=== PATIENT | male | born 1965 | race Caucasian/White ===

== ENCOUNTER 2020-11-04 13:13 | Outpatient (REF) | payer BC, SELFPAY ==
[2020-11-04 14:36] LABS: Hematocrit 40.8 % (42-52); Hemoglobin 14.3 g/dl (14.0-18.0); Mean Corpuscular Hemoglobin 31.2 pg (27.0-33.0); Mean Corpuscular Volume 88.9 fL (80-98); Mean Platelet Volume 9.3 fL (9.4-12.4); Platelet Count 209 X10*3/uL (160-400); Red Blood Count 4.59 X10*6/uL (4.60-5.80); Red Cell Distribution Width 12.7 % (11.0-16.0); White Blood Count 4.3 X10*3/uL (4.8-10.8)
[2020-11-04 15:04] LABS: Alanine Aminotransferase 22 U/L (0-40); Albumin Level 4.3 g/dL (3.5-5.0); Alkaline Phosphatase 47 U/L (39-117); Anion Gap 11 (12-20); Aspartate Amino Transferase 22 U/L (5-37); Blood Urea Nitrogen 13 mg/dL (9-16); Calcium 9.4 mg/dL (8.4-10.2); Carbon Dioxide 26 mmol/L (22-29); Chloride 101 mmol/L (96-108); Estimated Glomerular Filt Rate > 60; Glucose Random 87 mg/dL (60-115); Potassium 4.4 mmol/L (3.3-5.1); Sodium 134 mmol/L (135-145)
== END 2020-11-04 13:14 | disposition home or self-care (01) ==
LOC: HO.LAB 13:13
PROVIDERS: PCP Internal Medicine; Referring Provider Internal Medicine; Visit Provider Nurse Practitioner Family
DX: K21.9 Gastro-esophageal reflux disease without esophagitis (principal); Z79.899 Other long term (current) drug therapy; Z86.010 Personal history of colon polyps
CPT/HCPCS: 36415; 80053; 85027

== ENCOUNTER 2020-11-05 09:04 | Outpatient (REF) | payer BC, SELFPAY | END 2020-11-05 09:05 | disposition home or self-care (01) | LOC: HO.LNP 09:04 | PROVIDERS: Visit Provider Nurse Practitioner Family | DX: K21.9 Gastro-esophageal reflux disease without esophagitis (principal) | CPT/HCPCS: 87338 ==

== ENCOUNTER → 2020-12-14 12:53 | Outpatient (BNVA) | payer BC, SELFPAY | PROVIDERS: PCP Internal Medicine; Visit Provider Nurse Practitioner Family ==

== ENCOUNTER 2021-02-10 08:02 | Day surgery (SDC) | payer BC, SELFPAY ==
--- NOTE | 2021-02-09 14:12 | HO.ANESPROP2 ---
Documented by User: Elva Cooper NP 02/09/21 14:13 HPI - Anesthesia Eval Consult details Narrative: 56yo M for Upper Endoscopy and Colonoscopy [facility] Past Medical History Medical History (Updated 02/04/21 @ 12:24 by Lacie Butler, ESSENCE) Dysphagia GERD (gastroesophageal reflux disease) Leukopenia Family History Family History (Updated 12/14/20 @ 12:58 by JADE Samson) Mother Pancreatic cancer Paternal Grandmother Breast cancer Maternal Uncle Prostate cancer Surgical History Surgical History (Updated 12/14/20 @ 12:57 by JADE Samson) H/O repair of rotator cuff History of knee surgery Social History Social History (Updated 12/14/20 @ 12:59 by JADE Samson) Alcohol intake: current Alcohol intake frequency: other Patient Tobacco Use Status: Never used Tobacco Use of substances other than those prescribed or required for medical reasons: No Are you DNR?: No Advance Directives: No Advance Directives Information Provided: Yes Meds Allergies Allergy/AdvReac Type Severity Reaction Status Date / Time IODIDE Allergy Severe KIDNEY Uncoded 02/10/21 08:14 PROBLEMS Home Medications Medication Instructions Recorded Confirmed Last Taken Type fesoterodine 8 mg tablet,extended 8 mg PO DAILY 11/04/20 02/04/21 02/10/21 06:30 History release 24 hr (C[place]ney) triamcinolone acetonide 0.1 % appl TOPICAL 11/04/20 Unknown History topical cream Exam Exam Date and Time: February 09, 2021 1412 Pertinent Lab Results Pertinent Lab Results: Laboratory Tests 11/04/20 11/04/20 14:15 14:15 WBC 4.3 L Hgb 14.3 Hct 40.8 L Plt Count 209 Sodium 134 L Potassium 4.4 Chloride 101 Carbon Dioxide 26 BUN 13 Creatinine 0.84 Assessment and Plan Assessment Anesthesia Assessment: Chart Reviewed Documented by User: Neelima Pedroza MD 02/10/21 08:58 [facility] Past Medical History Medical History (Updated 02/04/21 @ 12:24 by Lacie Butler RN) Dysphagia GERD (gastroesophageal reflux disease) Leukopenia Family History Family History (Updated 12/14/20 @ 12:58 by JADE Samson) Mother Pancreatic cancer Paternal Grandmother Breast cancer Maternal Uncle Prostate cancer Family history of problems with anesthesia: No Surgical History Surgical History (Updated 12/14/20 @ 12:57 by JADE Samson) H/O repair of rotator cuff History of knee surgery History of Problems with Anesthesia: No Social History Social History (Updated 12/14/20 @ 12:59 by JADE Samson) Alcohol intake: current Alcohol intake frequency: other Patient Tobacco Use Status: Never used Tobacco Use of substances other than those prescribed or required for medical reasons: No Are you DNR?: No Advance Directives: No Advance Directives Information Provided: Yes Meds Allergies Allergy/AdvReac Type Severity Reaction Status Date / Time IODIDE Allergy Severe KIDNEY Uncoded 02/10/21 08:14 PROBLEMS Home Medications Medication Instructions Recorded Confirmed Last Taken Type fesoterodine 8 mg tablet,extended 8 mg PO DAILY 11/04/20 02/04/21 02/10/21 06:30 History release 24 hr (Toviaz) triamcinolone acetonide 0.1 % appl TOPICAL 11/04/20 Unknown History topical cream Exam Height,Weight and Vital Signs: HR in high 40s in pre op . asymptomatic , patient has active lifestyle . Airway Mallampati Class: I (Caps laterally) TM Dist: >3cm Neck ROM: Full Heart: rrr Lungs: bl breath sounds Other: patient has caps Assessment and Plan Assessment Anesthesia Assessment: Anesthesia Plan Discussed and Chart Reviewed Final Anesthetic Review Family History of Problems with Anesthesia: No History of Problems with Anesthesia: No NPO: Yes ASA Class: II Final Preanesthetic Review: Meds/Allgs Chart Reviewed and Anes Risks/Benef Reviewed Patient Risk: Intermediate Procedure Risk: Intermediate Anesthetic Plan Anesthetic Plan: MAC: Disposition: Standard PACU
[2021-02-10 08:24] VITALS: BMI 25.7
[2021-02-10 08:25] VITALS: BP 128/69; PULSE 50; RESP 16; TEMP 36.2; O2SAT 100
--- NOTE | 2021-02-10 08:26 | MHC.SHP ---
Pre-Procedural Eval Section A Date of Service: 02/10/21 Section B Chief Complaint: screening,reflux disease Relevant Family History (Specify if Yes): No Relevant Social History: None Present Medications: see Short Stay Collaborative assessment Medical History: Significant History (Dysphagia GERD (gastroesophageal reflux disease) Leukopenia) History of Previous Operations: Relevant previous surgery/procedure and date(s) (H/O repair of rotator cuff History of knee surgery) Allergies: Allergies Allergy/AdvReac Type Severity Reaction Status Date / Time IODIDE Allergy Severe KIDNEY Uncoded 02/10/21 08:14 PROBLEMS Review of Systems Sugical H&P ROS: Negative: Constitution, Cardiovascular, Respiratory, Neurological, Psychiatric, Hem-Onc, Allergic/Immunologic, Gastrointestinal, Genitourinary, Musculoskeletal, Integumentary, Endocrine and Eyes/Ears/Nose/Throat Exam Surgical H&P Exam: Normal: HEENT, Normal: Heart, Normal: Lungs, Normal: Extremities, Normal: Abdomen, Normal: Skin and Normal: Neurological Plan Diagnosis/Plan: Unchanged I have reviewed the history and physical and performed a pertinent physical examination on my patient. No changes have occurred unless specified.
[2021-02-10] MEDS: Lactated Ringers 1,000 ML 100 ML IVCONT (08:34)
--- NOTE | 2021-02-10 08:55 | P.OP_ITS ---
Operative Note Operative Note Date of Service: 02/10/21 Narrative: Operative Information Procedure Description: EGD, Colonoscopy FLEXIBLE TRANSORAL UPPER GASTROINTESTINAL ENDOSCOPY AND COLONOSCOPY PROCEDURE NOTE UPPER ENDOSCOPY Consent: Indications for the procedure and potential complications of bleeding, perforation, reaction to medications and missed diagnosis were discussed with the patient and informed consent was obtained. Instrument: Olympus GIF H 190 J mid size upper endoscope Monitoring: Vital signs and clinical assessment, continuous EKG monitoring, Pulse oximetry, Carbon Dioxide monitoring and blood pressure monitoring were done throughout the procedure. Procedure: The patient was placed in the left lateral decubitis position and pre-procedure medications were administered and a bite block was placed. The endoscope was inserted into the mouth and advanced under direct vision to the third part of duodenum. A careful inspection was made as the upper endoscope was withdrawn including a retroflexed examination of the proximal stomach; Findings and interventions are described below. Findings: Larynx:normal Esophagus: GE junction at 46 cm, diaphragm hiatus at 46 cm, irregular z line with suspicion for short segment barretts, bx taken Stomach: Patchy erythematous mucosa. Biopsies were obtained. Grade 2 flap valve on retroflexed examination of the cardia. Duodenum: Normal bulb and descending duodenum, Intervention: Biopsies as noted above COLONOSCOPY Instrument: Olympus variable stiffness pediatric scope 190L Colonoscopy Monitoring: Vital signs and clinical assessment, continuous EKG monitoring, Pulse oximetry, Carbon Dioxide monitoring and blood pressure monitoring were done throughout the procedure. Colon withdrawal time was 19 minutes. Procedure: The patient was placed in the left lateral decubitis position and pre-procedure medications were administered. After a digital rectal examination of the ano-rectum, the video colonoscope was inserted into the rectum and advanced through the colon to the cecum/TI. The colonoscope was slowly withdrawn in a retrograde panoramic fashion and the colon mucosa was carefully examined including a retroflexed view of the rectum. Findings and interventions are described below. Procedure Difficulty:easy Findings: Terminal Ileum-normal Cecum: x 2 sessile polyps 4-6 mm removed with forceps Ascending Colon: normal Transverse Colon -normal Descending Colon:normal Sigmoid Colon: distal sigmoid with 11-13 mm semi pedunculated polyp removed with cold snare with 2 clips applied for hemostasis Rectum: Retroflexion with small internal hemorrhoids, grade I, also erythema noted in distal rectum with swelling and granularity, bx taken Anorectum - normal Colon preparation: [place] Bowel Preparation Scale Right colon; 2 Transverse colon: 3 Left colon; 3 (0 = Unprepared colon segment with mucosa not seen due to solid stool that cannot be cleared. 1 = Portion of mucosa of the colon segment seen, but other areas of the colon segment not well seen due to staining, residual stool and/or opaque liquid. 2 = Minor amount of residual staining, small fragments of stool and/or opaque liquid, but mucosa of colon segment seen well. 3 = Entire mucosa of colon segment seen well with no residual staining, small fragments of stool or opaque liquid) Impression and Post Procedure Diagnosis: Endoscopy Findings: gastritis possible short segment barretts Colonoscopy Findings: polyps internal hemorrhoids proctitis Plan: Await Pathology results Repeat Colonoscopy in 3 years or earlier if clinically indicated High fiber diet leaflet avoid straining at stool, epsom salts and sitz bath, anusol supps or cream Above findings were reviewed with the patient and relevant handouts were provided if indicated.
--- NOTE | 2021-02-10 08:55 | P.BOP_ITS ---
Brief Operative Note Date of Service: 02/10/21 Pre-op diagnosis: GERD, colon screening Post-op diagnosis: same Procedure: see op note Surgeon: Salena Guaman MD Anesthesia: MAC Was an Hostess Party Sales Representative used for this Procedure?: No Estimated blood loss (mL): 0 Condition: stable Disposition: PACU
--- NOTE | 2021-02-10 09:08 | PC.NURSE ---
Dr. Pedroza notified about patients bradycardia in the high 40's. Patient asymptomatic. No new orders, okay to proceed with procedure.
[2021-02-10 09:43] VITALS: BP 105/71; PULSE 50; RESP 16; TEMP 36.4; O2SAT 100
[2021-02-10 09:58] VITALS: BP 111/69; PULSE 52; RESP 18; TEMP 36.4; O2SAT 100
== END 2021-02-10 10:30 | disposition home or self-care (01) ==
PROVIDERS: PCP Internal Medicine; Visit Provider Internal Medicine Gastroenterology
PROC: (CPT 45385; principal; 2021-02-10 09:20)
DX: Z12.11 Encounter for screening for malignant neoplasm of colon (principal); D12.0 Benign neoplasm of cecum; D12.5 Benign neoplasm of sigmoid colon; K64.0 First degree hemorrhoids; K62.89 Other specified diseases of anus and rectum; K21.9 Gastro-esophageal reflux disease without esophagitis; K29.50 Unspecified chronic gastritis without bleeding; K22.89 Other specified disease of esophagus; K44.9 Diaphragmatic hernia without obstruction or gangrene; D72.819 Decreased white blood cell count, unspecified
CPT/HCPCS: 45385; 45380; 43239; 88305; 88342

== ENCOUNTER → 2021-02-26 10:07 | Outpatient (BNVA) | payer BC, SELFPAY | PROVIDERS: PCP Internal Medicine; Visit Provider Nurse Practitioner Family ==

== ENCOUNTER 2023-08-30 16:18 | Outpatient (AMB) | payer BC, SELFPAY ==
--- NOTE | 2023-08-30 16:20 | MHC.OFFVIS ---
Vital Signs 08/30/23 16:25 Height 5 ft 11 in Weight 197 lb 8.547 oz BMI 27.5 BP 128/80 Blood Pressure Location Rt brachial Position Sitting Pulse 48 L Pulse Source Pulse Oximeter Pulse Oximetry (%) 97 Oxygen Delivery Method Room Air Intake Visit Reasons: 3 yeras Colonoscopy/EGD screening Intake Note: Kevin presents in office today for a 3 year FUV. CC; Pt states that they are due for a egd and colo scrn. Pt reports that they have remained stable and that everything about this visit should be routine. Mold Engraver Required: No Allergies IODIDE Allergy (Severe, Uncoded 02/26/21 10:08) KIDNEY PROBLEMS HPI HPI 3 yeras Colonoscopy/EGD screening: Details: LAST VISIT: Tubular adenoma Tubular adenoma without dysplasia or carcinoma found on colonoscopy. Patient will need to have colonoscopy repeated in 3 years. Patient denies any melena, hematochezia, unintentional weight loss or ribbon like stools. Patient was instructed to speak to his blood relatives about early colorectal screening. GERD (gastroesophageal reflux disease) Upper endoscopy shows chronic inactive inflammation. Patient will continue on PPI for now. We will keep the PPI twice a day half an hour before breakfast and half an hour before dinner. He is agreeable to this. I will see him in 2 months to re-evaluate. 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 Patient was also instructed to avoid dietary triggers and late night snacking. Upright post meal for 2-3 hours, avoid laying down after meals Status post colonoscopy Patient denies any ill effects from the prep, anesthesia or procedure itself. Patient reports that he had very good experience. He is aware that he will need to have colorectal screening again in 3 years. Tubular adenoma found without dysplasia or carcinoma. Patient was also instructed to speak to his blood relatives about her lead colorectal screening. Symptoms of melena, hematochezia, unintentional weight loss or ribbon like stools discussed with him and what else to look for. Patient is agreeable to this plan and verbalizes understanding of instructions. He was given the opportunity to ask questions and all questions answered. ? Thank you for allowing me to participate in his care Plan Medications Refilled pantoprazole take half an hour before breakfast and half an hour before dinner 40 mg PO BID 60 tabs 2RF TODAY'S VISIT Patient is here today for follow-up and to discuss going for colonoscopy. Patient denies any GI concerning symptoms. Patient reports that he is no longer using pantoprazole. His symptoms have resolved. Patient reports that he changed his diet, eating healthier. Patient noticed that his symptoms of acid reflux were related to what he was eating. Patient admits that he was eating pasta with spaghetti sauce. Patient is moving his bowels without any issues. Denies melena, hematochezia, unintentional weight loss or ribbon like stools. Patient denies any dyspepsia, dysphagia or odynophagia. No issues with anesthesia in the past. No history of sleep apnea. Not on any anticoagulation medication. Patient denies any cardiac or respiratory symptoms. [facility] Medical History Tubular adenoma Dysphagia GERD (gastroesophageal reflux disease) Leukopenia Surgical History Hx of colonoscopy History of esophagogastroduodenoscopy (EGD) History of knee surgery H/O repair of rotator cuff Family History Mother Pancreatic cancer Paternal Grandmother Breast cancer Maternal Uncle Prostate cancer Social History Alcohol intake: current Alcohol intake frequency: other Patient Tobacco Use Status: Never used Tobacco Review of Systems Const Denies weight gain and Denies weight loss ENT Reports no additional complaints, Denies dysphagia and Denies odynophagia Card Reports no additional complaints Resp Reports no additional complaints GI Denies abdominal pain, Denies belching, Denies melena, Denies bloating, Denies change in bowel habits, Denies dysphagia, Denies excessive flatus, Denies dyspepsia, Denies heartburn, Denies diarrhea, Denies loose stools, Denies nausea, Denies odynophagia and Denies vomiting Reports no additional complaints Musc Reports no additional complaints Neuro Reports no additional complaints Psych Reports no additional complaints Endo Reports no additional complaints Physical Exam Vital Signs: Last Vital Signs Pulse 48 L 08/30/23 16:25 BP 128/80 08/30/23 16:25 Pulse Ox 97 08/30/23 16:25 Oxygen Delivery Method Room Air 08/30/23 16:25 BMI result Body Mass Index 27.5 Const General: healthy appearing, no acute distress and well developed Nutritional Appearance: well nourished Orientation/consciousness: patient oriented x3 Resp Auscultation: clear to auscultation bilaterally Cardio Rate: regular rate GI Inspection: Yes normal to inspection and No distended Palpation (GI): No hepatosplenomegaly present Auscultation: normal bowel sounds Skin General skin exam: elasticity normal, turgor normal and dry skin Neuro General: patient oriented x3 Assessment & Plan Assessment & Plan (1) Tubular adenoma: Code(s): D36.9 - Benign neoplasm, unspecified site Category: Medical (2) GERD (gastroesophageal reflux disease): Code(s): K21.9 - Gastro-esophageal reflux disease without esophagitis Qualifiers: Esophagitis presence: without esophagitis Qualified Code(s): K21.9 - Gastro-esophageal reflux disease without esophagitis (3) Screen for colon cancer: Code(s): Z12.11 - Encounter for screening for malignant neoplasm of colon Plan Continue avoiding dietary triggers. No need to send patient for endoscopy this time. No symptoms for over a year. Tubular adenoma without high-grade dysplasia or carcinoma found in January of 2021. Patient denies any melena, hematochezia. Denies any family history of colon cancer. Moving his bowels without any issues. No issues with anesthesia in the past. No history of sleep apnea. Not on any anticoagulation medication. Patient denies any cardiac or respiratory symptoms. What to expect before during and after procedure discussed with patient. The importance of good bowel prep day before procedure discussed with patient. He will follow-up in our office after the procedure, sooner on as needed basis. He is agreeable to this plan and verbalizes understanding of instructions. He was given the opportunity to ask questions and all questions answered. Thank you for allowing me to participate in his care Medications: New bisacodyl (Dulcolax (bisacodyl)) take 4 tabs at noon the day before your colonoscopy 20 mg (4 x 5 mg) PO ONCE 4 tabs 0RF 1 day Z12.11 - Encounter for screening for malignant neoplasm of colon polyethylene glycol 3350 (Miralax) As directed by gastroenterology department at [facility] 238 grams PO ONCE 238 grams 0RF Z12.11 - Encounter for screening for malignant neoplasm of colon Coding Level of Care Code Est Pt Level 3 (36588) Diagnoses Tubular adenoma D36.9 Gastroesophageal reflux disease without esophagitis K21.9 Esophagitis presence: without esophagitis Screen for colon cancer Z12.11 Time Spent (min) 35 Comment 25 minutes spent with patient and additional 10 minutes spent reviewing his records
[2023-08-30 16:25] VITALS: BP 128/80; PULSE 48; O2SAT 97; BMI 27.5
== END 2023-08-30 16:46 | disposition home or self-care (01) ==
PROVIDERS: PCP Internal Medicine; Visit Provider Nurse Practitioner Family
DX: D36.9 Benign neoplasm, unspecified site (principal); K21.9 Gastro-esophageal reflux disease without esophagitis; Z12.11 Encounter for screening for malignant neoplasm of colon
CPT/HCPCS: 99213

== ENCOUNTER → 2023-08-30 16:18 | Outpatient (BNVA) | payer BC, SELFPAY | PROVIDERS: PCP Internal Medicine; Visit Provider Nurse Practitioner Family ==

== ENCOUNTER 2024-01-18 07:53 | Day surgery (SDC) | payer BC, SELFPAY ==
[2024-01-16 11:51] VITALS: BMI 27.5
--- NOTE | 2024-01-17 08:36 | HO.ANESPROP2 ---
Documented by User: Elva Cooper NP 01/17/24 08:36 HPI - Anesthesia Eval Consult details Narrative: 58yo M for Colonoscopy PMFSH Active Problems Active Problems: All Active Problems Tubular adenoma (Acute) Past Medical History Medical History Tubular adenoma Dysphagia GERD (gastroesophageal reflux disease) Leukopenia Family History Family History Mother Pancreatic cancer Paternal Grandmother Breast cancer Maternal Uncle Prostate cancer Family history of problems with anesthesia: No Surgical History Surgical History Hx of colonoscopy History of esophagogastroduodenoscopy (EGD) History of knee surgery H/O repair of rotator cuff History of Problems with Anesthesia: No Social History Social History Alcohol intake: current Alcohol intake frequency: other Patient Tobacco Use Status: Never used Tobacco Use of substances other than those prescribed or required for medical reasons: Yes Substance Use Type Other:: gummies--last 1 month ago Substance Use Frequency: Occasionally Are you DNR?: No Advance Directives: No Advance Directives Information Provided: Yes Recently lost weight without trying: No Meds Allergies Allergy/AdvReac Type Severity Reaction Status Date / Time IODIDE Allergy Severe KIDNEY Uncoded 02/26/21 10:08 PROBLEMS Home Medications ?Medication ?Instructions ?Recorded ?Confirmed ?Last Taken ?Type fesoterodine 8 mg tablet,extended 8 mg PO DAILY 11/04/20 02/04/21 02/10/21 06:30 History release 24 hr (Tovijaleel) triamcinolone acetonide 0.1 % appl topical 11/04/20 Unknown History topical cream Chaga Tea 1 ea PO DAILY 08/30/23 Unknown History tadalafil 5 mg tablet 5 mg PO DIRECTED 08/30/23 Unknown History valacyclovir 1 gram tablet 4,000 mg PO ONCE 08/30/23 Unknown History turmeric PO DAILY 01/18/24 Unknown History Exam Height,Weight and Vital Signs: Height 5 ft 11 in Weight 89.358 kg Assessment and Plan Assessment Anesthesia Assessment: Chart Reviewed Final Anesthetic Review Family History of Problems with Anesthesia: No History of Problems with Anesthesia: No Documented by User: Pricilla Tracey MD 01/18/24 09:39 [facility] Past Medical History Medical History Tubular adenoma Dysphagia GERD (gastroesophageal reflux disease) Leukopenia Family History Family History Mother Pancreatic cancer Paternal Grandmother Breast cancer Maternal Uncle Prostate cancer Surgical History Surgical History Hx of colonoscopy History of esophagogastroduodenoscopy (EGD) History of knee surgery H/O repair of rotator cuff Social History Social History Alcohol intake: current Alcohol intake frequency: other Patient Tobacco Use Status: Never used Tobacco Use of substances other than those prescribed or required for medical reasons: Yes Substance Use Type Other:: gummies--last 1 month ago Substance Use Frequency: Occasionally Are you DNR?: No Advance Directives: No Advance Directives Information Provided: Yes Recently lost weight without trying: No Meds Allergies Allergy/AdvReac Type Severity Reaction Status Date / Time IODIDE Allergy Severe KIDNEY Uncoded 02/26/21 10:08 PROBLEMS INFANT Home Medications ?Medication ?Instructions ?Recorded ?Confirmed ?Last Taken ?Type fesoterodine 8 mg tablet,extended 8 mg PO DAILY 11/04/20 02/04/21 02/10/21 06:30 History release 24 hr (Toviaz) triamcinolone acetonide 0.1 % appl topical 11/04/20 Unknown History topical cream Chaga Tea 1 ea PO DAILY 08/30/23 Unknown History tadalafil 5 mg tablet 5 mg PO DIRECTED 08/30/23 Unknown History valacyclovir 1 gram tablet 4,000 mg PO ONCE 08/30/23 Unknown History turmeric PO DAILY 01/18/24 Unknown History Exam Airway Mallampati Class: II TM Dist: >3cm Neck ROM: Full Heart: rrr Lungs: cta Assessment and Plan Assessment Anesthesia Assessment: Anesthesia Plan Discussed Final Anesthetic Review NPO: Yes ASA Class: II Final Preanesthetic Review: No Changes in Pt Med Stat, Meds/Allgs Chart Reviewed, Consent Obtained/Reviewed and Anes Risks/Benef Reviewed Patient Risk: Intermediate Procedure Risk: Low Anesthetic Plan Anesthetic Plan: MAC: Disposition: Standard PACU
[2024-01-18 08:39] VITALS: BMI 26.5
[2024-01-18 08:44] VITALS: BP 117/72; PULSE 51; RESP 15; TEMP 36.4; O2SAT 99
[2024-01-18] MEDS: Lactated Ringers 1,000 ML 100 ML IVCONT (08:58)
--- NOTE | 2024-01-18 09:03 | MHC.SHP ---
Pre-Procedural Eval Section A - 24 Hr Update-Section A only Date of Service: 01/18/24 Section B - Complete if H&P > 30 days Chief Complaint: screening Relevant Family History (Specify if Yes): No Relevant Social History: None Present Medications: see Short Stay Collaborative assessment Medical History: Significant History (Tubular adenoma Dysphagia GERD (gastroesophageal reflux disease) Leukopenia) History of Previous Operations: Relevant previous surgery/procedure and date(s) (Hx of colonoscopy History of esophagogastroduodenoscopy (EGD) History of knee surgery H/O repair of rotator cuff) Allergies: Allergies Allergy/AdvReac Type Severity Reaction Status Date / Time IODIDE Allergy Severe KIDNEY Uncoded 02/26/21 10:08 PROBLEMS INFANT Review of Systems Sugical H&P ROS: Negative: Constitution, Cardiovascular, Respiratory, Neurological, Psychiatric, Hem-Onc, Allergic/Immunologic, Gastrointestinal, Genitourinary, Musculoskeletal, Integumentary, Endocrine and Eyes/Ears/Nose/Throat Exam Surgical H&P Exam: Normal: HEENT, Normal: Heart, Normal: Lungs, Normal: Extremities, Normal: Abdomen, Normal: Skin and Normal: Neurological Plan Diagnosis/Plan: Unchanged I have reviewed the history and physical and performed a pertinent physical examination on my patient. No changes have occurred unless specified. Time Spent With Patient Time: Total time managing care of this patient today ____ minutes.
--- NOTE | 2024-01-18 09:40 | HO.OPN-COLON ---
Colonoscopy Operative Note Operative Note Date of Service: 01/18/24 Narrative: Operative Information Procedure Description: Colonoscopy Indication: hx of colon polyps Anesthesia: MAC COLONOSCOPY Instrument: Olympus variable stiffness pediatric scope 190L Colonoscopy Monitoring: Vital signs and clinical assessment, continuous EKG monitoring, Pulse oximetry, Carbon Dioxide monitoring and blood pressure monitoring were done throughout the procedure. Colon withdrawal time was 10 minutes. Procedure: The patient was placed in the left lateral decubitis position and pre-procedure medications were administered. After a digital rectal examination of the ano-rectum, the video colonoscope was inserted into the rectum and advanced through the colon to the cecum/TI. The colonoscope was slowly withdrawn in a retrograde panoramic fashion and the colon mucosa was carefully examined including a retroflexed view of the rectum. Findings and interventions are described below. Procedure Difficulty: easy Findings: Terminal Ileum-normal Cecum:normal Right sided retroflexion- normal Ascending Colon: x 3 sessile polyps 4-6 mm removed with cold forceps Transverse Colon -normal Descending Colon:normal Sigmoid Colon: x2 sessile polyps 7-9 mm, one removed with cold snare and one with cold forceps Rectum: Retroflexion with small internal hemorrhoids seen, grade I Anorectum - normal Intervention: cold snare, cold forceps Colon preparation: [place] Bowel Preparation Scale Right colon; 2 Transverse colon: 2 Left colon; 2 (0 = Unprepared colon segment with mucosa not seen due to solid stool that cannot be cleared. 1 = Portion of mucosa of the colon segment seen, but other areas of the colon segment not well seen due to staining, residual stool and/or opaque liquid. 2 = Minor amount of residual staining, small fragments of stool and/or opaque liquid, but mucosa of colon segment seen well. 3 = Entire mucosa of colon segment seen well with no residual staining, small fragments of stool or opaque liquid) Impression and Post Procedure Diagnosis: colon polyps internal hemorrhoids Plan: High fiber diet leaflet Avoid straining at stool, epsom salts and sitz bath, anusol supps or cream Repeat Colonoscopy in 3 years or earlier if clinically indicated Above findings were reviewed with the patient and relevant handouts were provided if indicated.
[2024-01-18 10:16] VITALS: BP 109/63; PULSE 57; RESP 16; TEMP 36.2; O2SAT 100
[2024-01-18 10:30] VITALS: BP 116/71; PULSE 50; RESP 16; TEMP 36.3; O2SAT 98
== END 2024-01-18 10:58 | disposition home or self-care (01) ==
PROVIDERS: PCP Internal Medicine; Visit Provider Internal Medicine Gastroenterology
PROC: 0DJD8ZZ Inspection of Lower Intestinal Tract, Via Natural or Artificial Opening Endoscopic (ICD-10-PCS; CPT 45378; principal; 2024-01-18 09:50)
DX: Z12.11 Encounter for screening for malignant neoplasm of colon (principal); Z86.0101 Personal history of adenomatous and serrated colon polyps; D12.2 Benign neoplasm of ascending colon; D12.5 Benign neoplasm of sigmoid colon; K64.0 First degree hemorrhoids; K21.9 Gastro-esophageal reflux disease without esophagitis; D72.819 Decreased white blood cell count, unspecified; Z79.899 Other long term (current) drug therapy; Z91.041 Radiographic dye allergy status; Z98.890 Other specified postprocedural states
CPT/HCPCS: 45385; 45380; 88305; J2003; J2704

== ENCOUNTER → 2024-01-18 07:53 | Outpatient (BNV) | payer BC, SELFPAY | PROVIDERS: PCP Internal Medicine; Visit Provider Internal Medicine Gastroenterology | DX: Z12.11 Encounter for screening for malignant neoplasm of colon (principal); Z86.0100 Personal history of colon polyps, unspecified; D12.5 Benign neoplasm of sigmoid colon; D12.2 Benign neoplasm of ascending colon; K64.0 First degree hemorrhoids | CPT/HCPCS: 45380; 45385 ==

== ENCOUNTER 2024-02-12 16:24 | Outpatient (AMB) | payer BC, SELFPAY ==
[2024-02-12 16:25] VITALS: PULSE 56; O2SAT 98; BMI 27.3
--- NOTE | 2024-02-12 16:25 | MHC.OFFVIS ---
Vital Signs 02/12/24 16:25 Height 5 ft 11 in Weight 195 lb 12.328 oz BMI 27.3 Blood Pressure Location Rt brachial Position Sitting Pulse 56 Pulse Source Pulse Oximeter Pulse Oximetry (%) 98 Oxygen Delivery Method Room Air Intake Visit Reasons: S/P [place]; Dr. Guaman Intake Note: Relevant Flags or Indicators ? Requires Louver Mortiser Operator? Alberto Brown presents in office today for a scheduled s/p colo FUV. CC; No recent labs, diagnostics, or med orders placed. ?Pt reports having labs performed today via PCP. Low white count. Relevant GI Sx as reported per pt? Hx of any recent surgeries? [place] w/ Dr. Guaman Louver Mortiser Operator Required: No Allergies IODIDE Allergy (Severe, Uncoded 02/26/21 10:08) KIDNEY PROBLEMS INFANT HPI HPI S/P [place]; Dr. Guaman: Details: LAST VISIT: Tubular adenoma GERD (gastroesophageal reflux disease) Screen for colon cancer Plan Continue avoiding dietary triggers. No need to send patient for endoscopy this time. No symptoms for over a year. Tubular adenoma without high-grade dysplasia or carcinoma found in January of 2021. Patient denies any melena, hematochezia. Denies any family history of colon cancer. Moving his bowels without any issues. No issues with anesthesia in the past. No history of sleep apnea. Not on any anticoagulation medication. Patient denies any cardiac or respiratory symptoms. What to expect before during and after procedure discussed with patient. The importance of good bowel prep day before procedure discussed with patient. He will follow-up in our office after the procedure, sooner on as needed basis. He is agreeable to this plan and verbalizes understanding of instructions. He was given the opportunity to ask questions and all questions answered. ? Thank you for allowing me to participate in his care Medications New bisacodyl (Dulcolax (bisacodyl)) take 4 tabs at noon the day before your colonoscopy 20 mg (4 x 5 mg) PO ONCE 4 tabs 0RF 1 day Z12.11 polyethylene glycol 3350 (Miralax) As directed by gastroenterology department at [facility] 238 grams PO ONCE 238 grams 0RF Z12.11 COLONOSCOPY: Findings: Terminal Ileum-normal Cecum:normal Right sided retroflexion- normal Ascending Colon: x 3 sessile polyps 4-6 mm removed with cold forceps Transverse Colon -normal Descending Colon:normal Sigmoid Colon: x2 sessile polyps 7-9 mm, one removed with cold snare and one with cold forceps Rectum: Retroflexion with small internal hemorrhoids seen, grade I Anorectum - normal Intervention: cold snare, cold forceps Colon preparation: [place] Bowel Preparation Scale Right colon; 2 Transverse colon: 2 Left colon; 2 (0 = Unprepared colon segment with mucosa not seen due to solid stool that cannot be cleared. 1 = Portion of mucosa of the colon segment seen, but other areas of the colon segment not well seen due to staining, residual stool and/or opaque liquid. 2 = Minor amount of residual staining, small fragments of stool and/or opaque liquid, but mucosa of colon segment seen well. 3 = Entire mucosa of colon segment seen well with no residual staining, small fragments of stool or opaque liquid) Impression and Post Procedure Diagnosis: colon polyps internal hemorrhoids Plan: High fiber diet leaflet Avoid straining at stool, epsom salts and sitz bath, anusol supps or cream Repeat Colonoscopy in 3 years or earlier if clinically indicated PATHOLOGY RESULTS Diagnosis A. Colon, sigmoid, polypectomies: - Tubular adenoma; negative for high-grade dysplasia or carcinoma. - Hyperplastic mucosal polyp. B. Colon, ascending, polypectomies: Fragments of tubular adenomata; negative for high-grade dysplasia or carcinoma TODAY'S VISIT: Patient is here today for follow-up and to discuss colonoscopy results. Patient denies any ill effects from the prep, anesthesia or procedure itself. Patient reports to be feeling well overall. Moves his bowels well. Denies any melena, hematochezia. Tubular adenoma found in sigmoid and ascending colon without high-grade dysplasia or carcinoma. Recommendation was made for patient to return for colorectal screening in 3 years. Patient has significant family history of pancreatic cancer. His mom was diagnosed before age 60. Patient denies any unintentional weight loss. Patient does admit to drink alcohol occasionally. PFSH Medical History (Updated 02/12/24 @ 16:46 by Precious Chapman [facility]) Family history of pancreatic cancer Tubular adenoma Dysphagia GERD (gastroesophageal reflux disease) Leukopenia Surgical History Hx of colonoscopy History of esophagogastroduodenoscopy (EGD) History of knee surgery H/O repair of rotator cuff Family History Mother Pancreatic cancer Paternal Grandmother Breast cancer Maternal Uncle Prostate cancer Social History Alcohol intake: current Alcohol intake frequency: other Patient Tobacco Use Status: Never used Tobacco Review of Systems Const Denies weight gain and Denies weight loss ENT Reports no additional complaints, Denies dysphagia and Denies odynophagia Card Reports no additional complaints Resp Reports no additional complaints GI Denies abdominal pain, Denies belching, Denies melena, Denies bloating, Denies change in bowel habits, Denies dysphagia, Denies excessive flatus, Denies dyspepsia, Denies heartburn, Denies diarrhea, Denies loose stools, Denies nausea, Denies odynophagia and Denies vomiting Reports no additional complaints Musc Reports no additional complaints Neuro Reports no additional complaints Psych Reports no additional complaints Endo Reports no additional complaints Physical Exam Vital Signs: Last Vital Signs Pulse 56 02/12/24 16:25 Pulse Ox 98 02/12/24 16:25 Oxygen Delivery Method Room Air 02/12/24 16:25 BMI result Body Mass Index 27.3 Const General: healthy appearing, no acute distress and well developed Nutritional Appearance: well nourished Orientation/consciousness: patient oriented x3 Resp Auscultation: clear to auscultation bilaterally Cardio Rate: regular rate GI Inspection: Yes normal to inspection and No distended Palpation (GI): No hepatosplenomegaly present Auscultation: normal bowel sounds Skin General skin exam: elasticity normal, turgor normal and dry skin Neuro General: patient oriented x3 Assessment & Plan Assessment & Plan (1) Family history of pancreatic cancer: Code(s): Z80.0 - Family history of malignant neoplasm of digestive organs Category: Medical (2) Tubular adenoma: Code(s): D36.9 - Benign neoplasm, unspecified site Category: Medical (3) Status post colonoscopy: Code(s): Z98.890 - Other specified postprocedural states Plan Patient will return for colonoscopy in 3 years, sooner if clinically necessary. Will screen for pancreatic cancer. Patient will be sent for MRCP. Patient also complaints occasional abdominal bloating. Avoid dietary triggers and late night snacking. Patient will follow-up with us pending results from MRI. He will call our office if he will have any GI concerning symptoms. He is agreeable to this plan and verbalizes understanding of instructions. He was given the opportunity to ask questions and all questions answered. Thank you for allowing me to participate in his care Orders: Orders Carbohydrate Antigen 19-9 02/12/24 Z80.0 - Family history of malignant neoplasm of digestive organs MR MRCP 02/12/24 Z80.0 - Family history of malignant neoplasm of digestive organs Coding Level of Care Code Est Pt Level 3 (55059) Diagnoses Family history of pancreatic cancer Z80.0 Tubular adenoma D36.9 Status post colonoscopy Z98.890 Time Spent (min) 25 Comment 15 minutes spent with patient and additional 10 minutes spent reviewing his records
== END 2024-02-12 17:00 | disposition home or self-care (01) ==
PROVIDERS: PCP Internal Medicine; Visit Provider Nurse Practitioner Family
DX: Z80.0 Family history of malignant neoplasm of digestive organs (principal); D36.9 Benign neoplasm, unspecified site; Z98.890 Other specified postprocedural states
CPT/HCPCS: 99213

== ENCOUNTER 2024-06-06 15:41 | Outpatient (REF) | payer BC, SELFPAY ==
--- NOTE | ~2024-06-06 | MR_ITS ---
EXAMINATION: MRI Abdomen without and with contrast HISTORY: Z80.0 - Family history of malignant neoplasm of digestive organs. Evaluate for pancreas divisum. COMPARISON: None TECHNIQUE: Axial in and out of phase T1-weighted gradient echo, axial diffusion weighted, and axial and coronal HASTE T2 with fat saturation images were obtained through the abdomen. 3D MRCP Reconstructed and thin and thick slab images of the biliary tree were obtained. Subsequently, fat suppressed axial and coronal T1-weighted images were obtained after the intravenous administration of 9 mL Gadavist. FINDINGS: The pancreatic duct is normal in caliber. There is conventional pancreatic ductal anatomy without evidence of pancreas divisum. There is no pancreatic mass. There is no peripancreatic inflammatory change. There is no significant signal loss within the liver on opposed phase imaging to suggest steatosis. There is a 1.3 cm cyst in the right lobe. There is no enhancing liver mass. The hepatic and portal veins are patent. There is no intrahepatic biliary ductal dilatation. The gallbladder is unremarkable. The common bile duct is normal in caliber. No intraluminal filling defects are identified. The spleen, adrenals, and right kidney are unremarkable. There are left renal cysts measuring up to 11 mm in size. No retroperitoneal lymphadenopathy or ascites is identified in the upper abdomen. The visualized bones demonstrate normal signal intensity. MR/MR abdomen wo/w con IMPRESSION: 1. Conventional pancreatic ductal anatomy. No evidence of pancreas divisum. 2. Hepatic and left renal cysts as described. Electronically signed by: Craig Angelo MD 06/07/2024 07:17 AM EDT
[2024-06-06] MEDS: gadobutroL 10 ML VIAL IVPUSH (16:33)
== END 2024-06-06 15:42 | disposition home or self-care (01) ==
LOC: HO.MRI 15:41
PROVIDERS: Visit Provider Nurse Practitioner Family
DX: R10.9 Unspecified abdominal pain (principal); K86.1 Other chronic pancreatitis; Z87.19 Personal history of other diseases of the digestive system; Z80.0 Family history of malignant neoplasm of digestive organs
CPT/HCPCS: 74183; A9585

== ENCOUNTER → 2024-06-06 15:50 | Outpatient (BNV) | payer BC, SELFPAY | PROVIDERS: Visit Provider Radiology Diagnostic Radiology | DX: N28.1 Cyst of kidney, acquired (principal) | CPT/HCPCS: 74183 ==

== ENCOUNTER 2025-01-08 08:17 | Outpatient (REF) | payer BC, SELFPAY ==
[2025-01-08 08:35] LABS: MANUAL DIFF FLAG NO
--- OUTSIDE RECORDS SUMMARY | 2025-01-08 08:37 | XMS_ITS | Encounter Summary ---
Author Organization [facility] Address [address] [place] [address] Care Team Providers Care Electronic Design Engineer Name Role Phone Unknown, Provider Primary Care Provider Unava ilable Encounter Details Date Type Department Care Team (Late st Contact Info) Description 05/14/2020 Lab Requisition [facility] Pathology & Laboratory Medicine - [facility] [address] [place] [address] Kendra Fernandez Contact with and (suspected) exposure to covid-19 Social History Tobacco Use Types Packs/Day Years Used Date Smoking Tobacco: Never Assessed Interpersonal Safety Answer Date Record ed Physically Hurt Never 03/23/2020 Verbally Threaten Not on file 03/23/2020 Sex and Gender Information Value Date Recorded Sex Assigned at Not on file Legal Sex Male 9:22 EST Gender Identity Not on file Sexual Orientation Not on file documented as of this encounter Plan of Treatment Not on file documented as of this encounter Procedures Procedure Name Priority Date/Time Associated Diagnosis Comments ZZCOVID-19 TEST [facility] PCR Today 05/14/2020 12:30 EST Contact with and (suspected) exposure to covid-19 COVID-19 TESTING Today 05/14/2020 12:3 0 EST Contact with and (suspected) exposure to covid-19 documented in this encounter Results * COVID-19 TEST [facility] PCR (05/14/2020 12:30 EST) Swab ENTIRE NASOPHARYNX / Unknown 05/14/2020 12:30 EST 05/14/2020 20:58 EST us Kendra Fernandez MICROBIOLOGY - GENERAL ORDERABLE S Final Result Performing Organization Address City/[facility]/ZIP Co de Phone Number [facility] [address] [place] [address] * COVID-19 TESTING (05/14/2020 12:30 EST) COVID-19 rt-PCR Result Negative Negative 05/15/2020 17:41 EST [facility] Comment: This test has not been FDA cleared or approved. This test has been authorized by FDA under an EUA for use by authorized laboratories. This test has been authorized only for detection of nucleic acid from 2019-nCoV, not for any other viruses or pathogens. This test is only authorized for the duration of the declaration that circumstances exist justifying the authorization of emergency use of in vitro diagnostic tests for detection and/or diagnosis of 2019-nCoV under section 564(b)(1) of Act, 21 U.S.C 360bbb-3(b) (1), unless the authorization is terminated or revoked sooner. Negative results do not preclude 2019-nCoV infection and should not be used as the sole basis for treatment or other patient management decisions. Negative results must be combined with clinical observations, patient history, and epidemiological information. This test was developed and its performance characteristics determined by [facility]. It has not been cleared or approved by the US Food and Drug Administration. FDA does not require this test to go through premarket FDA review. This test is used for clinical purposes. It should not be regarded as investigational or for research. This laboratory is certified under the Clinical Laboratory Improvement Amendments (CLIA) as qualified to perform high complexity clinical laboratory testing. This test is based on the [facility] COVID-19 Emergency Use Authorization (EUA) assay, with minor modification as defined by the FDA Performed on the zoiduo 7 Flex RT-PCR System. Performing Lab [facility] 05/15/2020 17:41 EST [facility] Swab 05/14/2020 12:3 0 EST 05/14/2020 20:58 EST Kendra Fernandez MICROBIOLOGY GENERAL ORDERABLE S Final Result [facility] [address] [place] [address] documented in this encounter Visit Diagnoses Diagnosis Contact with and (suspected) exposure to covid-19 documented in this encounter Care Teams Electronic Design Engineer Relationship Specialty Start Date End Date Unknown, Provider, PCP - General 03/27/19 documented as of this encounter
--- OUTSIDE RECORDS SUMMARY | 2025-01-08 08:37 | XMS_ITS | Clinical Summary ---
Author Organization [facility] Address [address] [place] [address] Care Team Providers Care Instructor Nurse Name Role Phone Unknown, Provider MD Primary Care Provider Unava ilable Social History Tobacco Use Types Packs/Day Years Used Date Smoking Tobacco: Never Assessed Interpersonal Safety Answer Date Record ed Physically Hurt Never 03/23/2020 Verbally Threaten Not on file 03/23/2020 Sex and Gender Information Value Date Recorded Sex Assigned at Not on file Legal Sex Male 9:22 EST Gender Identity Not on file Sexual Orientation Not on file Plan of Treatment Health Maintenance Due Date Last Done Comments Hepatitis C Screen 1965 Hepatitis B Vaccine (1 of 3 - 19+ 3-dose series) 02/06 COVID-19 Vaccine (2023- season) 20[address] [place] [id number] BS OOS Care Teams Instructor Nurse Relationship Specialty Start Date End Date Unknown, Provider, PCP - General 03/27/19
--- OUTSIDE RECORDS SUMMARY | 2025-01-08 08:38 | XMS_ITS | Clinical Summary ---
Author Organization [facility] Address [facility] [employer] [address] [address] Phone Care Team Providers Care Cooperage Shop Supervisor Name Role Phone Armani Posada MD Primary Care Provider [phone] Arnold Davidson MD Unavailable [phone] Lovely Mera MD Unavailable [phone] Irvin Bates MD Unavailable Unavailable Varghese Zhang MD Unavailable Raymond Meier MD Unavailable [phone] Armani Posada MD Unavailable [phone] Allergies No known active allergies Medications fesoterodine (TOVIAZ) 8 mg Tb24 Take 8 mg by mouth daily. Active tadalafiL (CIALIS) 5 MG tablet Take 5 mg by mouth daily as needed for erectile dysfunction. Active triamcinolone acetonide (KENALOG) 0.025 % lotion Apply 1 Application topically as needed. 11/05/19 21 Active valACYclovir (VALTREX) 1000 MG tablet As needed cold sores 10/27/19 22 Active loratadine (CLARITIN) 10 mg tablet Take 10 mg by mouth daily. Active Medication-Free Text Take 6-8 oz by mouth every morning. Active TURMERIC ORAL Take 1,100 mg by mouth daily. 01/18/20 24 Active cholecalciferol , vitamin D3, (VITAMIN D3 ORAL) Take 500 Units by mouth every morning. Active ketoconazole 2 % creamIndication s:Rash and other nonspecific skin eruption Apply topically daily. 60 g 1 12/26/19 25 Active loratadine (CLARITIN REDITABS) 10 mg dissolvable tablet Take 10 mg by mouth daily. 025 Discontinued enoxaparin (LOVENOX) 30 mg/0.3 mL Syrg subcutaneous syringe Inject 30 mg under the skin every 12 (twelve) hours. 025 Discontinued propylene glycol/peg 400/PF (SYSTANE, PF, OPHT) Apply 1 drop to eye as needed. 025 Discontinued Encounters Date Type Department Care Team Description 12/25/2024 4:00 PM EDT Office Visit [facility] Internal Medicine [address] [place] [address] Armani Posada MD Need for prophylactic vaccination and inoculation against influenza (Primary Dx); Lipid screening; Leukopenia, unspecified type; Screening for diabetes mellitus (DM); Rash and other nonspecific skin eruption 12/25/2024 Telephone [facility] Internal Medicine [address] [place] [address] Armani Posada MD dermatology referral 10/22/2024 Telephone [facility] Internal Medicine [address] [place] [address] Armani Posada MD Referral ([facility] Derm + updated insurance referral); Referral ([facility] Urology + updated insurance referral) from Last 3 Months Immunizations Immunization Administration Dates Next Due COVID-19 (Pre-01/16) Moderna Vaccine, mRNA, PF 0 07/18/2020,06/20/2020 INFLUENZA, SPLIT VIRUS, TRIVALENT PF 12/25/2024, 01/10/2024 Influenza Quadrivalent MDCK Preservative Free IM 12/09/2022,12/29/2020 Influenza Quadrivalent Preservative Free IM 06/2021,01/01/2020 Tdap 10/06/2020 Zoster recombinant 03/15/2021,11/10/2020 Family History Medical History Relation Comments Hypertension Brother Diabetes Father Hypertension Father Prostate cancer Maternal Uncle Pancreatic cancer Mother Breast cancer Paternal Grandmother Relation Status Comments Brother Alive Daughter Alive Father Alive Maternal Uncle Mother (Age 59) Paternal Grandmother Sister Alive congenital hear problem Son Alive Social History Tobacco Use Types Packs/Day Years Used Date Smoking Tobacco: Never Smokeless Tobacco: Never Tobacco Cessation:Counseling Given: Not Answered Alcohol Use Standard Drinks/Week Comments Yes 6 (1 standard drink = 0.6 oz pur e alcohol) beer or liqour Child or Family Care Answer Date Record ed Do you have problems with on e of the following making it difficult for you to work, study, or receive health care? I choose not to answer 12/23/2024 Education Answer Date Recorded Are you interested in help w ith more adult education (for example, completing high school, GED, job training, learning the [place] language, technical skills, or developing parenting skills)? I choose not to answer 12/23/2024 Are you concerned about learning? Not on file 12/23/2024 No 12/23/2024 Yes 12/23/2024 Food Answer Date Recorded Within the past 6 months we worried whether our food would run out before we got money to buy more. I choose not to answer 12/23/2024 Within the past 6 months the food we bought just didn't last and we didn't have enough money to get more. I choose not to answer 12/23/2024 Residential Stability Answer Date Recor ded What is your housing situation today? I choose n ot to answer 12/23/2024 How many times have you move d in the past 12 months? I choose not to answer 12/23/2024 Paying for Meds Answer Date Recorded Do you have trouble paying for medicines? I elvin se not to answer 12/23/2024 Paying Utility Bills Answer Date Record ed Do you have trouble paying y our heating or electricity bill? I choose not to answer 12/23/2024 Transportation Answer Date Recorded Has the lack of transportati on kept you from medical appointments or from getting medications? I choose not to answer 12/23/2024 Unemployment Answer Date Recorded Are you currently unemployed or working on a part-time or temporary basis, and looking for work? No 01/28/2022 Digital Access Answer Date Recorded No 12/23/2024 Yes 12/23/2024 Do you have reliable internet access at home? I choose not to answer 12/23/2024 Do you have a device (e.g., phone, tablet, computer) with a working camera? Yes 12/23/2024 Intimate Partner Violence Answer Date R ecorded Denied Basic Needs Not on file 12/23/2024 In the past 12 months have y ou been in a relationship with a person who hurts, threatens, or tries to control you? No 12/23/2024 Worried food would run out Not on file 12/23 In the past 12 months have y ou been in a relationship with a person who hurts, threatens, or tries to control you? No 12/23/2024 Sex and Gender Information Value Date Recorded Sex Assigned at Male 01/31/2022 3:31 PM EST Legal Sex Male 2:41 PM EDT Gender Identity Male 01/31/2022 3:31 PM EST Sexual Orientation Straight 01/31/2022 3: 31 PM EST Last Filed Vital Signs Vital Sign Reading Time Taken Comments Blood Pressure 120/84 12/25/2024 3:58 PM EDT Pulse 62 12/25/2024 3:58 PM EDT Temperature 36.7 C (98 F) 12/25/2024 3:58 PM EDT Respiratory Rate 16 09/20/2024 3:16 PM EDT Oxygen Saturation 99% 12/25/2024 3:58 PM EDT Inhaled Oxygen Concentration - - Weight 88.2 kg (194 lb 6.4 oz) 12/25/2024 3:58 P M EDT Height 179.2 cm (5' 10.55 ) 12/25/2024 3:58 PM E DT Body Mass Index 27.46 12/25/2024 3:58 PM EDT Plan of Treatment Upcoming Encounters Date Type Department Care Team (Late st Contact Info) Description 12/30/2025 8:00 AM EDT Office Visit [facility] Internal Medicine [address] [place] [address] Manuel Casarez PA-C [address] [place] [address] Health Maintenance Due Date Last Done Comments COLOGUARD 2010 FIT TEST 2010 FOBT 2010 SIGMOIDOSCOPY 2010 VIRTUAL COLONOSCOPY 2010 PNEUMOCOCCAL VACCINES (50+ years) (1 of 1 - PCV) 2015 COVID-19 VACCINE (4 - 2024- season) 2024 02/15/2021, 07/18/2020, 06/20/2020 DEPRESSION SCREENING 12/23/2025 12/23/2024 SCREENING FOR DIABETES 08/17/2026 , 08/18/2023, 06/13/2018 LIPID PANEL 08/17/2028 08/18/2023, 06/26, 07/17/2020, Additional history exists COLONOSCOPY 04/30/2029 04/30/2024, 01/25, 02/10/2021, Additional history exists COLORECTAL CANCER SCREENING 04/30/2029 Adult Td,Tdap Booster 10/06/2030 10/06/2020 RSV VACCINE (1 - 1-dose 75+ series) 02/07/2040 HEPATITIS C SCREENING Completed 07/17/2020, 021 HIV ONE-TIME SCREENING (18-65 YEARS) Completed 07/17/2020 ZOSTER VACCINES Completed 03/15/2021, 11/10/2020 INFLUENZA VACCINE Completed 12/25/2024, , 12/09/2022, Additional history exists SMOKING STATUS SCREENING (Once After 26 Yrs) Completed 12/25/2024 HEPATITIS A VACCINES Aged Out No long er eligible based on patient's age to complete this topic HIB VACCINES Aged Out No longer eligi ble based on patient's age to complete this topic MENINGOCOCCAL VACCINES (ACWY) Aged Out No longer eligible based on patient's age to complete this topic MENINGOCOCCAL VACCINES (B) Aged Out N o longer eligible based on patient's age to complete this topic Medical Devices Not on file Procedures Procedure Name Priority Date/Time Associated Diagnosis Comments HM COLONOSCOPY FOR RESULT ENTRY ONLY Routine 04/30/2024 5:36 PM EST LIPID PANEL Routine 08/18/2023 8:34 AM EDT Lipid screening HEPATITIS C ANTIBODY, QUALITATIVE Routine 07/17/2020 8:10 AM EDT Need for hepatitis C screening test OUTSIDE GLUCOSE FASTING Routine 06/13/2018 from Last 3 Months or Most Recently Relevant to Health Maintenance Results * HM COLONOSCOPY FOR RESULT ENTRY ONLY (04/30/2024 5:36 PM EST) us Historical Provider HEALTH MAINTENANCE Final Result * (ABNORMAL) Lipid panel (08/18/2023 8:34 AM EDT) HDL 74 mg/dL [facility] Comment: Interpretation <40 mg/dL: Low HDL cholesterol (major risk factor for CHD) Greater than or equal to 60 mg/dL: High HDL cholesterol ( negative risk factor for CHD) HDL - cholesterol is affected by a number of factors, e.g. smoking, excerise, hormones, sex and age. CHOLESTEROL 173 0 - 240 mg/dL [facility] TRIGLYCERIDES 29(L) 30 - 160 mg/dL [facility] LDL 93 50 - 129 mg/dL [facility] Comment: LDL levels in terms of risk for coronary heart disease: <100 mg/dL: Optimal 100-129 mg/dL: Near or above optimal 130-159 mg/dL: Borderline high 160-189 mg/dL: High >190 mg/dL: Very High CARDIAC RISK RATIO 2.3(L) 3.4 - 5.0 [facility] Blood 08/18/2023 8:34 AM EDT 08/18/2023 8:37 AM EDT Armani Posada MD LAB BLOOD ORDERABLES Final Re sult [address] [address] * Hepatitis C antibody, qualitative (07/17/2020 8:10 AM EDT) HCV NON-REACTIV E NON-REACTI VE [facility] Blood 07/17/2020 8:10 AM EDT 07/17/2020 8:17 AM EDT Armani Posada MD LAB BLOOD ORDERABLES Final Re sult [facility] [address] [place] [address] * Outside Glucose,Fasting (06/13/2018) Glucose, fasting - External 90 65 - 99 mg/dL Historical Provider LAB BLOOD ORDERABLES Yeimy l Result from Last 3 Months or Most Recently Relevant to Health Maintenance Insurance [facility] Care Teams Cooperage Shop Supervisor Relationship Specialty Start Date End Date Armani Posada MD [address] [place] [phone] [email or web address] PCP - General Internal Medicine 12/12/19 Arnold Davidson MD [address] [place] [id number] [email or web address] 02/18/20 Lovely Mera MD [address] [place] [address] [address] [place] [address] Gastroenterology 02/18/20 Irvin Bates MD [address] [facility] [address] [place] [address] Dermatology 02/18/20 Varghese Zhang MD [address] [facility] [address] [place] [address] Orthopedic Surgery 02/18/20 Raymond Meier MD [address] [place] [address] Drive [address] [place] [address] Pulmonary Disease 02/24/20 Armani Posada MD [address] [place] [address] [email or web address] Insurance Assigned Provider 07/01/23 Additional Source Comments The information contained in this document represents components of the legal health record. It is not the complete legal health record.[facility]
--- OUTSIDE RECORDS SUMMARY | 2025-01-08 08:38 | XMS_ITS | Encounter Summary ---
Author Organization [facility] Address [address] [place] [address] Care Team Providers Care Accounting Reconciliation Clerk Name Role Phone Unknown, Provider Primary Care Provider Unava ilable Encounter Details Date Type Department Care Team (Late st Contact Info) Description 03/25/2020 Lab Requisition [facility] Pathology & Laboratory Medicine - [facility] [address] [place] [address] Jonas Romero, PharmD [address] [place] [address] Contact with and (suspected) exposure to other viral communicable diseases Social History Tobacco Use Types Packs/Day Years [...] Procedure Name Priority Date/Time Associated Diagnosis Comments COVID-19 RUBI TEST Today 03/25/2020 11 :00 EST documented in this encounter Results * COVID-19 RUBI TEST (03/25/2020 11:00 EST) SARS CoV-2 Specimen Source Nasal 03/27/2020 6:43 EST [facility] Patient Race Unknown 03/27/2020 6:43 EST [facility] Patient Ethnicity Unknown 03/27/2020 6:43 EST [facility] SARS-CoV-2 RNA Result Undetected Undetected 03/27/2020 6:43 EST [facility] Comment: SARS-CoV-2 RNA absent. This result does not rule out COVID-19 in the patient, as the sensitivity of the test depends on the timing of the specimen collection and the quality of the specimen. Result should be correlated with patient's history and clinical presentation. Method Summary SEE NOTE 03/27/2020 6:43 EST [facility] [employer] Comment: RODERICK- This PCR test uses the roderick SARS-CoV-2 assay ([employer] and is performed on the roderick StyleCaster0 System. It has received Emergency Use Authorization (EUA) by the U.S. Food and Drug Administration. Performance characteristics were verified by [facility] in a manner consistent with CLIA requirements. Fact sheets for this Emergency Use Authorization (EUA) can be found at the following links: https://www.fda.gov/media/797257/download for Healthcare Providers https://www.fda.gov/media/655690/download for Patients Test Performed by: [place] [address] Commercial Sales Director: Alirio Reyes M.D. Ph.D.; CLIA# [id number] Swab ENTIRE NASOPHARYNX / Unknown Not Given / Unknown 03/25/2020 11:00 EST 03/25/2020 20:52 EST us Jonas Romero PharmD MICROBIOLOGY - GENERAL O RDERABLES Final Result Performing Organization Address City/State/[facility] Co de Phone Number [facility] [address] [place] [address] documented in this encounter Visit Diagnoses Diagnosis Contact with and (suspected) exposure to other viral communicable diseases documented in this encounter Care Teams Accounting Reconciliation Clerk Relationship Specialty Start Date End Date Unknown, Provider, PCP - General 03/27/19 documented as of this encounter
--- OUTSIDE RECORDS SUMMARY | 2025-01-08 08:38 | XMS_ITS | Encounter Summary ---
Author Organization [facility] Address [address] [place] [address] Phone Care Team Providers Care Resist Coater Developer Name Role Phone Armani Posada MD Primary Care Provider Arnold Davidson MD Unavailable [phone] Lovely Mera MD Unavailable [phone] Irvin Bates MD Unavailable Unavailable Varghese Zhang MD Unavailable [phone] Raymond Meier MD Unavailable [phone] Armani Posada MD Unavailable [phone] Reason for Visit * Reason Onset Date Comments Referral 10/04/2024 PT and Orthopedi cs Encounter Details Date Type Department Care Team (Late st Contact Info) Description 10/04/2024 Telephone [facility] Internal Medicine [address] [place], [place] [phone] Armani Posada MD [address] [place] [address] [email or web address] Referral (PT and Orthopedics) Social History Tobacco Use Types Packs/Day Years Used Date Smoking Tobacco: Never Smokeless Tobacco: Never Alcohol Use Standard Drinks/Week Comments Yes 6 [...] high school, GED, job training, learning the [place] language, technical skills, or developing parenting skills)? [...] 3:31 PM EST Sexual Orientation Straight 01/31/2022 3 :31 PM EST documented as of this encounter Progress Notes * Sera Carson - 10/04/2024 9:38 AM EDT Pt called and is still waiting on authorization for PT referral and Orthopedics referral, please fax pt has ortho 10/09/24 and he started PT 2 days ago. PT orthopedic is Dr. Watts documented in this encounter Plan of Treatment Upcoming Encounters Date Type Department Care Team (Late st Contact Info) Description 12/30/2025 8:00 AM EDT Office Visit [facility] Internal Medicine [address] [place] [address] Manuel Casarez PA-C [address] [place] [address] [email or web address] documented as of this encounter Visit Diagnoses Not on filedocumented in this encounter Additional Health Concerns Assessment Noted Time PHQ-2 Depression Total Score: 0 09/20/19 25 4:46 PM EDT documented as of this encounter Care Teams Resist Coater Developer Relationship Specialty Start Date End Date Armani Posada MD [address] [place] [address] [email or web address] PCP - General Internal Medicine 12/12/19 Arnold Davidson MD [address] [facility] [address] [place] [address] [email or web address] Urology 02/18/20 Lovely Mera MD [address] [place] [address] [address] [place] [address] Gastroenterology 02/18/20 Irvin Bates MD [address] [facility] [address] [place] [address] Dermatology 02/18/20 Varghese Zhang MD 300 [facility] [address] [place] [address] Orthopedic Surgery 02/18/20 Raymond Meier MD [address] [place] [address] Drive [address] [place] [address] Pulmonary Disease 02/24/20 Armani Posada MD [address] [place] [address] [email or web address] Insurance Assigned Provider 07/01/23 documented as of this encounter Additional Source Comments The information contained in this document represents components of the legal health record. It is not the complete legal health record.[facility]
--- OUTSIDE RECORDS SUMMARY | 2025-01-08 08:38 | XMS_ITS | Encounter Summary ---
Author Organization [facility] Address [address] [place] [address] Care Team Providers Care Editor Dictionary Name Role Phone Unknown, Provider Primary Care Provider Unava ilable Encounter Details Date Type Department Care Team (Late st Contact Info) Description 03/23/2020 Lab Requisition [facility] Pathology & Laboratory Medicine - [facility] [address] [place] [address] Jones Russell, [address] [phone] Contact with and (suspected) exposure to other [...] Procedure Name Priority Date/Time Associated Diagnosis Comments DO NOT ORDER STANDALONE - BROAD COVID TEST Today 03/23/2020 11:15 EST Contact with and (suspected) exposure to other viral communicable diseases COVID-19 TESTING Today 03/23/2020 11:1 5 EST Contact with and (suspected) exposure to other viral communicable diseases documented in this encounter Results * DO NOT ORDER STANDALONE - BROAD COVID TEST (03/23/2020 11:15 EST) COVID-19 rt-PCR Result NEGATIVE Negative 03/25/2020 8:36 [facility] Comment: 2019-novel Coronavirus (2019-nCoV) not detected by the qRT-PCR assay. Consider testing for other respiratory viruses or re-collecting for 2019-nCoV testing. Note: Optimum timing for peak viral levels during infections caused by 2019-nCoV have not been determined. Collection of multiple specimens from the same patient may be necessary to detect the virus. Limitations Positive results are indicative of active infection with SARS-CoV-2 but do not rule out bacterial infection or co-infection with other viruses. The agent detected may not be the definite cause of disease. In addition, detection of viral RNA may not indicate the presence of infectious virus or that SARS-CoV-2 is the causative agent for clinical symptoms. Negative results do not preclude SARS-CoV-2 infection and should not be used as the sole basis for patient management decisions. Negative results must be combined with clinical observations, patient history, and epidemiological information. False negative results may also occur if amplification inhibitors are present in the specimen or if inadequate numbers of organisms are present in the specimen. Optimum specimen types and timing for peak viral levels during infections caused by SARS-CoV-2 have not been fully determined. Collection of multiple specimens (types and time points) from the same patient may be necessary to detect the virus. The test was validated for use with upper respiratory specimens obtained via nasopharyngeal or oropharyngeal swabs in VTM, UTM, M4, M5, M6, saline, and MTM media. The performance of this test has not been established for other specimens. Specimens collected using other FDA recommended Specimen Collection Materials listed in the FDA COVID-[employer] communication (June 20, 2019) are processed with the caveat that they were not all validated for use with this test and the result must be interpreted in this context. Furthermore, a false negative results may occur if a specimen is improperly collected, transported or handled. If the virus mutates in the RT-PCR target region, SARS-CoV-2 may not be detected or may be detected less predictably. Inhibitors or other types of interference may produce a false negative result. An interference study evaluating the effect of common cold medications was not performed. This test is not FDA-cleared but its performance characteristics were established by our CLIA-certified, CAP-accredited, high complexity laboratory in accordance with CLIA regulations, [employer] ([employer]) guidelines (Jun 13, 2019), and FDA guidance (May 25, 2019). This test is only for use under the Food and Drug Administration's Emergency Use Authorization. Swab NASAL / Unknown Swab / Unknown 03/23/2020 11:15 EST 03/23/2020 20:26 EST Analesa Lovely Russell [facility] - NERAL ORDERABLES Final Result [facility] [place], [place] * COVID-19 TESTING (03/23/2020 11:15 EST) COVID-19 rt-PCR Result NEGATIVE Negative 03/25/2020 10:04 EST [facility] Comment: 2019-novel Coronavirus (2019-nCoV) not detected by the qRT-PCR assay. Consider testing for other respiratory viruses or re-collecting for 2019-nCoV testing. Note: Optimum timing for peak viral levels during infections caused by 2019-nCoV have not been determined. Collection of multiple specimens from the same patient may be necessary to detect the virus. Limitations Positive results are indicative of active infection with SARS-CoV-2 but do not rule out bacterial infection or co-infection with other viruses. The agent detected may not be the definite cause of disease. In addition, detection of viral RNA may not indicate the presence of infectious virus or that SARS-CoV-2 is the causative agent for clinical symptoms. Negative results do not preclude SARS-CoV-2 infection and should not be used as the sole basis for patient management decisions. Negative results must be combined with clinical observations, patient history, and epidemiological information. False negative results may also occur if amplification inhibitors are present in the specimen or if inadequate numbers of organisms are present in the specimen. Optimum specimen types and timing for peak viral levels during infections caused by SARS-CoV-2 have not been fully determined. Collection of multiple specimens (types and time points) from the same patient may be necessary to detect the virus. The test was validated for use with upper respiratory specimens obtained via nasopharyngeal or oropharyngeal swabs in VTM, UTM, M4, M5, M6, saline, and MTM media. The performance of this test has not been established for other specimens. Specimens collected using other FDA recommended Specimen Collection Materials listed in the FDA COVID-19 [employer] communication (June 20, 2019) are processed with the caveat that they were not all validated for use with this test and the result must be interpreted in this context. Furthermore, a false negative results may occur if a specimen is improperly collected, transported or handled. If the virus mutates in the RT-PCR target region, SARS-CoV-2 may not be detected or may be detected less predictably. Inhibitors or other types of interference may produce a false negative result. An interference study evaluating the effect of common cold medications was not performed. This test is not FDA-cleared but its performance characteristics were established by our CLIA-certified, CAP-accredited, high complexity laboratory in accordance with CLIA regulations, [employer] ([employer]) guidelines (Jun 13, 2019), and FDA guidance (May 25, 2019). This test is only for use under the Food and Drug Administration's Emergency Use Authorization. Performing Lab [facility] 03/25/2020 10:04 EST [facility] Swab NASAL / Unknown Swab / Unknown 03/23/2020 11:15 EST 03/23/2020 20:26 EST us Analesa Lovely Russell [facility] MICROBI[facility] - NERAL ORDERABLES Final Result [facility] [address] [place] [address] [facility] [place], ID documented in this encounter Visit Diagnoses Diagnosis Contact with and (suspected) exposure to other viral communicable diseases documented in this encounter Care Teams Editor Dictionary Relationship Specialty Start Date End Date Unknown, Provider, PCP - General 03/27/19 documented as of this encounter
[2025-01-08 09:23] LABS: Hematocrit 42.2 % (42.0-52.0); Hemoglobin 14.5 g/dl (14.0-18.0); Imm Gran Abs Auto 0.00 X10*3/uL (0.00-0.03); Imm Gran Pct Auto 0.0 % (0.0-0.4); Lymphocytes Absolute Auto 1.2 X10*3/uL (1.2-4.9); Mean Corpuscular HGB Conc 34.4 g/dl (31.0-36.0); Mean Corpuscular Hemoglobin 30.7 pg (27.0-33.0); Mean Corpuscular Volume 89.4 fL (80.0-98.0); NRBC Abs Auto 0.000 X10*3/uL (0.0-0.012); NRBC Pct Auto 0.0 /100WBC (0.0-0.2); Platelet Count 184 X10*3/uL (160-400); Red Blood Count 4.72 X10*6/uL (4.60-5.80); White Blood Count 2.9 X10*3/uL (4.8-10.8)
[2025-01-08 10:25] LABS: Alanine Aminotransferase 27 U/L (0-40); Albumin Level 4.2 g/dL (3.5-5.0); Alkaline Phosphatase 61 U/L (39-117); Anion Gap 8 (12-20); Aspartate Amino Transferase 26 U/L (5-37); Blood Urea Nitrogen 13 mg/dL (9-16); Calcium 9.1 mg/dL (8.4-10.2); Carbon Dioxide 27 mmol/L (22-29); Chloride 105 mmol/L (96-108); Cholesterol 192 mg/dL (<200); Estimated Glomerular Filt Rate > 60; HDL Cholesterol 68 mg/dL (>40); Potassium 4.4 mmol/L (3.3-5.1); Sodium 136 mmol/L (135-145); Total Protein 6.6 g/dL (6.5-8.0); Triglycerides 56 mg/dL (<150)
[2025-01-08 10:35] LABS: Prostate Specific Antigen 0.44 ng/mL (<0.05-4.0)
== END 2025-01-08 08:18 | disposition home or self-care (01) ==
LOC: HO.LAB 08:17
PROVIDERS: Absent Provider Physician Assistant; PCP Internal Medicine; Visit Provider Internal Medicine
DX: Z13.220 Encounter for screening for lipoid disorders (principal); Z13.1 Encounter for screening for diabetes mellitus; N40.1 Benign prostatic hyperplasia with lower urinary tract symptoms; D72.819 Decreased white blood cell count, unspecified; Z12.5 Encounter for screening for malignant neoplasm of prostate; Z13.6 Encounter for screening for cardiovascular disorders
CPT/HCPCS: 36415; 80053; 80061; 83036; 84153; 85025